=== PATIENT | female | born 1960 | race Two or more races ===

== ENCOUNTER 2018-09-06 13:32 | Emergency (ER) | payer MEDICAID ==
[~2018-09-06] VITALS: Ht 160 cm; Wt 81.6 kg
--- NOTE | 2018-09-06 13:37 | NUR ---
ED Nurse Note: Pt JOSE from an urgent care due to abdominal pain with nausea and diarrhea since Thursday09/04/18. Pain in upper medial area, 5/10 nallely. Emesis was undigested food and fluid. Last bowel movement was this morning. AOx4, VSS nallely. Will cont to monitor.
[2018-09-06 13:39] VITALS: BP 126/80
[2018-09-06] MEDS ORDERED: LOSARTAN POTASS25 MG ORAL (13:41)
[2018-09-06] MEDS ORDERED: ALBUTEROL2.5 MG/3 M INH (13:41)
[2018-09-06] MEDS ORDERED: Morphine Sulfate 2mg/ml Inj(IV/IM USE ONLY) IVP ONE (14:00)
[2018-09-06 14:30] LABS: APPEARANCE,URINE CLEAR; BILIRUBIN, URINE 2+ (NEGATIVE); GLUCOSE, URINE (UA) NEGATIVE (NEGATIVE); KETONES,URINE 3+ (NEGATIVE); LEUKOCYTE ESTERASE ,URINE 2+ (NEGATIVE); NITRITE,URINE NEGATIVE (NEGATIVE); PH,URINE 5 (4.5-8.0); PROTEIN,URINE 2+ (NEGATIVE); UROBILINOGEN,URINE 1 MG/DL (0.0-1.0)
[2018-09-06 14:33] LABS: BASOPHILS % (AUTO) 0.7 % (0.0-2.0); EOSINOPHILS % (AUTO) 1.5 % (0.0-3.0); LYMPHOCYTES % (AUTO) 16.4 % (20.0-45.0); MEAN CORPUSCULAR VOLUME 90 FL (80-99); MONOCYTES % (AUTO) 9.5 % (1.0-10.0); NEUTROPHILS % (AUTO) 71.9 % (45.0-75.0); PLATELET COUNT 288 K/UL (150-450); RED BLOOD COUNT 5.11 M/UL (4.20-5.40); RED CELL DISTRIBUTION WIDTH 11.8 % (11.6-14.8); WHITE BLOOD COUNT 5.3 K/UL (4.8-10.8)
--- NOTE | 2018-09-06 14:34 | Emergency Room Report ---
History of Present Illness General Chief Complaint: Abdominal Pain Source: Patient, EMS Present Illness HPI This patient states that 3 days ago she developed diffuse crampy abdominal pain and recurrent diarrhea. She has been nauseated but denies vomiting. She states she has been fatigued and has felt terrible. She did travel to [place] [facility] this past year but returned 2 months ago and has been well ever since her return. She denies chest pain or shortness of breath. She denies blood in her stool. She does have crampy abdominal pain. She denies headache or neck pain. She denies cough or congestion. She has no other complaints. Allergies: Coded Allergies: No Known Allergies (Unverified , 09/06/18) Patient History Past Medical History: see triage record, DM, HTN, other - HLP Social History: Denies: smoking, alcohol use, drug use Reviewed Nursing Documentation: PMH: Agreed; PSxH: Agreed Nursing Documentation-PMH Past Medical History: No History, Except For Hx Hypertension: Yes Hx Asthma: Yes Hx Diabetes: Yes - pre Review of Systems All Other Systems: negative except mentioned in HPI Physical Exam Vital Signs Date Time Temp Pulse Resp B/P (MAP) Pulse Ox O2 Delivery O2 Flow Rate FiO2 09/06/18 13:30 98.4 103 18 129/87 (101) 100 Room Air Sp02 EP Interpretation: reviewed, normal General Appearance: no apparent distress, alert, GCS 15, non-toxic Head: normocephalic, atraumatic Eyes: bilateral eye normal inspection, bilateral eye PERRL ENT: hearing grossly normal, normal pharynx, no angioedema, normal voice Neck: full range of motion, supple/symm/no masses Respiratory: chest non-tender, lungs clear, normal breath sounds, no respiratory distress, no retraction, no accessory muscle use, speaking full sentences Cardiovascular #1: regular rate, rhythm, no edema Gastrointestinal: normal bowel sounds, soft, non-distended, no guarding, no rebound, tenderness - TTP in the epigastrium and L. abdomen Rectal: deferred Musculoskeletal: back normal, gait/station normal, normal range of motion, non- tender Neurologic: alert, oriented x3, responsive, motor strength/tone normal, sensory intact, speech normal Psychiatric: judgement/insight normal, memory normal, mood/affect normal, no suicidal/homicidal ideation Skin: normal color, no rash, warm/dry, well hydrated Medical Decision Making Diagnostic Impression: Primary Impression: Colitis Additional Impression: Gastroenteritis ER Course This patient has a clinical presentation consistent with gastroenteritis/ colitis. The patient's abdominal exam was benign. I do not suspect cholecystitis, pancreatitis, appendicitis or diverticulitis based on history and physical and laboratory workup. The patient did undergo ultrasound of the abdomen which was unremarkable. Given the patient's travel history, I will treat this patient with Cipro and Flagyl for possible bacterial or parasitic infection. The patient is nontoxic and nonsurgical at this time. The patient was instructed to follow-up closely with her primary care physician. The patient was given return precautions and followup instructions. Laboratory Tests Test 09/06/18 13:44 09/06/18 14:05 Urine Color Yellow Urine Appearance Clear Urine pH 5 (4.5-8.0) Urine Specific [place] 1.030 (1.005-1.035) Urine Protein 2+ (NEGATIVE) H Urine Glucose (UA) Negative (NEGATIVE) Urine Ketones 3+ (NEGATIVE) H Urine Blood 4+ (NEGATIVE) H Urine Nitrite Negative (NEGATIVE) Urine Bilirubin 2+ (NEGATIVE) H Urine Ictotest Negative (NEGATIVE) Urine Urobilinogen 1 MG/DL (0.0-1.0) H Urine Leukocyte Esterase 2+ (NEGATIVE) H Urine RBC 5-10 /HPF (0 - 2) H Urine WBC 5-10 /HPF (0 - 2) H Urine Squamous Epithelial Cells Few /LPF (NONE/OCC) Urine Bacteria Few /HPF (NONE) Urine Mucus Few /LPF (NONE/OCC) H White Blood Count 5.3 K/UL (4.8-10.8) Red Blood Count 5.11 M/UL (4.20-5.40) Hemoglobin 15.0 G/DL (12.0-16.0) Hematocrit 46.0 % (37.0-47.0) Mean Corpuscular Volume 90 FL (80-99) Mean Corpuscular Hemoglobin 29.4 PG (27.0-31.0) Mean Corpuscular Hemoglobin Concent 32.7 G/DL (32.0-36.0) Red Cell Distribution Width 11.8 % (11.6-14.8) Platelet Count 288 K/UL (150-450) Mean Platelet Volume 6.4 FL (6.5-10.1) L Neutrophils (%) (Auto) 71.9 % (45.0-75.0) Lymphocytes (%) (Auto) 16.4 % (20.0-45.0) L Monocytes (%) (Auto) 9.5 % (1.0-10.0) Eosinophils (%) (Auto) 1.5 % (0.0-3.0) Basophils (%) (Auto) 0.7 % (0.0-2.0) Sodium Level 138 MMOL/L (136-145) Potassium Level 3.5 MMOL/L (3.5-5.1) Chloride Level 104 MMOL/L (98-107) Carbon Dioxide Level 20 MMOL/L (21-32) L Anion Gap 15 mmol/L (5-15) Blood Urea Nitrogen 20 mg/dL (7-18) H Creatinine 0.8 MG/DL (0.55-1.30) Estimate Glomerular Filtration Rate > 60 mL/min (>60) Glucose Level 103 MG/DL (74-106) Calcium Level 9.5 MG/DL (8.5-10.1) Total Bilirubin 0.4 MG/DL (0.2-1.0) Aspartate Amino Transferase (AST) 31 U/L (15-37) Alanine Aminotransferase (ALT) 18 U/L (12-78) Alkaline Phosphatase 98 U/L (46-116) Troponin I 0.000 ng/mL (0.000-0.056) Total Protein 8.0 G/DL (6.4-8.2) Albumin 3.8 G/DL (3.4-5.0) Globulin 4.2 g/dL Albumin/Globulin Ratio 0.9 (1.0-2.7) L Lipase 106 U/L (73-393) CT/MRI/US Diagnostic Results CT/MRI/US Diagnostic Results : Imaging Test Ordered: US ABD Impression No acute findings. See official report in electronic medical record. Last Vital Signs Date Time Temp Pulse Resp B/P (MAP) Pulse Ox O2 Delivery O2 Flow Rate FiO2 09/06/18 13:39 98.4 85 19 126/80 100 Room Air Status: improved Disposition: HOME, SELF-CARE Condition: Improved Leslie Yeager DO Sep 06, 2018 14:34
[2018-09-06 14:36] LABS: ANION GAP 15 mmol/L (5-15); BLOOD UREA NITROGEN 20 mg/dL (7-18); CALCIUM 9.5 MG/DL (8.5-10.1); CARBON DIOXIDE 20 MMOL/L (21-32); CHLORIDE 104 MMOL/L (98-107); CREATININE 0.8 MG/DL (0.55-1.30); POTASSIUM 3.5 MMOL/L (3.5-5.1); SODIUM 138 MMOL/L (136-145)
[2018-09-06 14:39] LABS: COLOR,URINE YELLOW
[2018-09-06 14:40] LABS: ALANINE AMINOTRANSFERASE 18 U/L (12-78); ALBUMIN 3.8 G/DL (3.4-5.0); ALBUMIN/GLOBULIN RATIO 0.9 (1.0-2.7); ALKALINE PHOSPHATASE 98 U/L (46-116); ASPARTATE AMINO TRANSFERASE 31 U/L (15-37); BILIRUBIN,TOTAL 0.4 MG/DL (0.2-1.0)
[2018-09-06 15:47] VITALS: BP 140/79
--- NOTE | 2018-09-06 16:05 | Diagnostic Imaging Report ---
Indication: Dyspnea Comparison: None A single view chest radiograph was obtained. Findings: Cardiomediastinal appearance is within normal limits for age. The lungs are clear. Pulmonary vascularity is appropriate. The diaphragmatic contour is smooth and costophrenic angles are sharp. No pleural effusions are identified. The bones are unremarkable. Impression: No acute findings
--- NOTE | 2018-09-06 16:06 | Diagnostic Imaging Report ---
Indication: Abdominal pain Comparison: None Single view of the abdomen obtained Findings: Bowel gas pattern is nonspecific. No mass, ectopic calcifications, or abnormal gas collections are identified. The bones are unremarkable. IUD noted. There is narrowing of both hip joints. Impression: No acute findings
--- NOTE | 2018-09-06 16:06 | NUR ---
ED Nurse Note: US tech at bedside for imaging.
[2018-09-06 17:29] VITALS: BP 122/74
[2018-09-06] MEDS ORDERED: METRONIDAZOLE500 MG ORAL (17:57)
[2018-09-06] MEDS ORDERED: CIPROFLOXACIN500 M2 ORAL (17:57)
[2018-09-06] MEDS ORDERED: ZOFRAN ODT8 MG ORAL (17:57)
[2018-09-06 18:05] VITALS: BP 122/74
--- NOTE | 2018-09-06 18:05 | NUR ---
ER DISCHARGE NOTE: Patient is cleared to be discharged per ERMD, pt is aox4, on room air, with stable vital signs. pt was given dc and prescription instructions, pt was able to verbalize understanding, pt id band and iv site removed without complications. pt is able to ambulate with steady gait. pt took all belongings.
--- NOTE | 2018-09-07 11:21 | Diagnostic Imaging Report ---
Indication: Abdominal pain Technique: Grayscale and duplex Doppler imaging of the abdomen performed. Comparison: None Findings: The liver is echogenic consistent with fatty infiltration with a measurement of about 19 cm. Doppler interrogation of the main portal vein shows patency with hepatopedal, monophasic flow. There is no biliary ductal dilitation identified. The CBD measures 3.2 mm. The gallbladder is unremarkable. There are no gallstones or wall thickening identified. Sonographic barcenas's sign was negative per technologist. The demonstrated part of the pancreas, aorta and IVC show no abnormalities. Both kidneys appear unremarkable. There is no hydronephrosis. The spleen is normal in size, contour and echogenicity. There is no free fluid identified. IMPRESSION: Hepatomegaly with fatty infiltration.
--- NOTE | 2018-09-07 15:01 | Cardiology Report ---
APPROVED REPORT EKG Measurement Heart [id number] Normal sinus rhythm Normal ECG
== END 2018-09-06 18:13 | disposition home or self-care (01) ==
LOC: EDBD 13:32 → EMR 14:12
DX: K52.9 Noninfective gastroenteritis and colitis, unspecified (principal); R10.9 Unspecified abdominal pain; I10 Essential (primary) hypertension; R73.03 Prediabetes; E78.5 Hyperlipidemia, unspecified
CPT/HCPCS: 36415; 71045; 74018; 76700; 80053; 81003; 83690; 84484; 85025; 93005; 96361; 96374; 96375; 96376; 99284; J2270; J2405